=== PATIENT | male | born 1990 | race Caucasian/White ===

== ENCOUNTER 2016-11-07 17:11 | Emergency (ER) | payer MEDICAID ==
--- NOTE | 2016-11-08 08:23 | ER ---
ADMIT: 11/07/2016 RM/LOC: ER [facility] MR#: [id number] [address] [id number] SUSI MULTANI [address] [place] [address] [place] [address] Emergency Room Report SEX: M AGE: 25 : 1990 DATE: 11/07/2016 SUBJECTIVE: Please refer to my T-sheet for complete HPI. Briefly, the patient says he is out of his medications. He is traveling here from [place]. They are moving here. They have been packed away, will not have them for a week. He has a history of anxiety. He says he really would like his bupropion and Flexeril and Amoxil refilled. PHYSICAL EXAMINATION: VITAL SIGNS: Stable. HEENT: Grossly normal. LUNGS: Clear. HEART: Regular. ABDOMEN: Soft. NEUROLOGIC: Alert and oriented. Nonfocal. EMERGENCY DEPARTMENT COURSE: Gave him a dose of Amoxil here. He is ready for discharge. ASSESSMENT: 1. Anxiety and out of medications. 2. Bronchitis. 3. Nicotine abuse. PLAN: Stop smoking. Flexeril, I gave him a script for 13; bupropion 100 mg, I gave him a script for 12, refilled his amoxicillin. I suggested he follow up. Danielito Hull MD/ wilberto JOB #: [id number] CC: Danielito Hull MD, Attending Physician Maikel Vieira MD, Family Physician
== END 2016-11-07 17:56 | disposition home or self-care (01) ==
LOC: ER 17:11
DX: F41.9 Anxiety disorder, unspecified (principal); J40 Bronchitis, not specified as acute or chronic; F17.210 Nicotine dependence, cigarettes, uncomplicated; F32.9 Major depressive disorder, single episode, unspecified

== ENCOUNTER 2016-11-26 19:08 | Emergency (ER) | payer MEDICAID ==
--- NOTE | 2016-11-26 23:58 | ER ---
ADMIT: 11/26/2016 RM/LOC: ER [facility] MR#: [id number] [id number] SUSI MULTANI [address] [place] [address], [place] [address] Emergency Room Report SEX: M AGE: 25 : 1990 DATE: 11/26/2016 The patient is a 25-year-old male, new to the community, sustained work related dental trauma, but not covered by workman's comp since he is part- time. Exam remarkable for nontoxic, afebrile male with exposed dental cap #32. Extensive dental caries #33 and 32. No discharge, lymphadenopathy, fever, facial/manddibular trauma or malocclusion. Superior alveolar block #3 with good results. Right Inferior alveolar block for 30 through 32 tooth with good results. Pen-Vee K 500 q.i.d. #40, hydrocodone 5/325 #20. Follow up dentist as soon as possible. Luis Solares MD/ wilberto JOB #: [id number] CC: Júnior Lopez MD, Attending Physician Arlette Gonzalez MD
== END 2016-11-26 20:00 | disposition home or self-care (01) ==
LOC: ER 19:08
PROC: 3E0T3BZ Introduction of Anesthetic Agent into Peripheral Nerves and Plexi, Percutaneous Approach (ICD-10-PCS; principal; 2016-11-26)
DX: K02.9 Dental caries, unspecified (principal); I10 Essential (primary) hypertension; F32.9 Major depressive disorder, single episode, unspecified; F41.9 Anxiety disorder, unspecified; F17.200 Nicotine dependence, unspecified, uncomplicated; Z79.899 Other long term (current) drug therapy